=== PATIENT | male | born 1985 | race Caucasian/White ===

== ENCOUNTER 2018-06-27 15:56 | Emergency (ER) | payer BC ==
[2018-06-27 16:00] VITALS: BP 131/95
--- NOTE | 2018-06-27 16:03 | ER Report ---
History and Physical Time Seen By MD: 16:03 Hx. of Stated Complaint: PATIENT CAUGHT HIS RIGHT INDEX FINGER IN A TABLE SAW. BLEEDING CONTROLLED HPI/ROS CHIEF COMPLAINT: Laceration to right index finger HISTORY OF PRESENT ILLNESS: 32-year-old male patient persists to emergency room with complaint of laceration to the right index finger. Patient states that he was using a table saw when he got his finger caught any. Patient states that he did apply pressure right away. He states that he does have some tenderness. He is unsure of his last tetanus shot. Patient denies any numbness tingling to his fingers. REVIEW OF SYSTEMS: Respiratory: No cough, no dyspnea. Cardiovascular: No chest pain, no palpitations. Gastrointestinal: No vomiting, no abdominal pain. Musculoskeletal: As noted above Allergies: Coded Allergies: No Known Drug Allergies (Unverified , 06/27/18) Home Meds Active Scripts Hydrocodone Bit/Acetaminophen (HYDROCODON-ACETAMINOPHEN 5-325) 1 Each Tablet, 1 EACH PO Q4-6H PRN for PAIN, #12 TAB Prov:WENDIONIEL [facility] 06/27/18 Cephalexin 500 Mg Tab (KEFLEX 500 MG TAB) 500 Mg Tablet, 500 MG PO Q6H, #28 TAB Prov:ONIEL ADAME [facility] 06/27/18 Reported Medications Lisinopril (LISINOPRIL) 20 Mg Tablet, 20 MG PO QDAY, TAB 06/27/18 Past Medical/Surgical History Patient has a past medical history of hypertension, asthma, alcohol use. Patient denies any surgical history. Reviewed Nurses Notes: Yes Constitutional Vital Sign - Last 24 Hours 06/27/18 16:00 Temp 97.6 Pulse 98 Resp 20 B/P (MAP) 131/95 Pulse Ox 93 O2 Delivery Room Air Physical Exam General Appearance: The patient is alert, has no immediate need for airway protection and no current signs of toxicity. Respiratory: Chest is non tender, lungs are clear to auscultation. Cardiac: regular rate and rhythm Gastrointestinal: Abdomen is soft and non tender, no masses, bowel sounds normal. Musculoskeletal: Neck: Neck is supple and non tender. Extremities have full range of motion and are non tender. Patient has a 4 cm laceration to the distal aspect of the right index finger, does go through the nail. Skin: No rashes or lesions. DIFFERENTIAL DIAGNOSIS: After history and physical exam differential diagnosis was considered for laceration, open Atul fracture Medical Decision Making EKG/Imaging Imaging FINGER RIGHT 2ND DIGIT INDICATION: Table saw accident. COMPARISON: None available FINDINGS: 3 views of the right index finger. There is a fracture of the proximal to mid distal phalanx. No appreciable displacement. Mild distraction. Soft tissue defect is present without radiopaque foreign body. No other bony or joint abnormality. IMPRESSION: Fracture distal phalanx of the right index finger. Soft tissues show a defect without radiopaque foreign body. Report Dictated By: Theodore Chong at 06/27/2018 5:04 PM Report E-Signed By: Theodore Chong at 06/27/2018 5:06 PM ED Course/Re-evaluation ED Course Patient was admitted to an exam room, history of physical were obtained. Differential diagnoses were considered. On examination lungs are clear, heart is regular, abdomen soft nontender. Patient does have significant laceration, measuring approximate 4 cm in length to the tip of the right index finger. The finger was anesthetized, cleaned and repaired described below. X-rays done of the right index finger which showed a fracture of the distal phalanx. I discussed the findings with patient. With the distal phalanx fracture as well as the laceration this is an open fracture and so we will go ahead and treat him with antibiotics, both here in the emergency room as well as orally. Patient will also receive a lumbar spine pain medication. He is to follow-up with [facility] for further evaluation and management of the fracture. They will remove the sutures and appropriate. Discusses patient who verbalized understanding and agreement with plan. Procedure: Laceration repair. Verbal consent was obtained from the patient. The 4 cm laceration on the tip of the right index finger was anesthetized in the usual fashion. The wound was scrubbed, draped and explored to its base with a gloved finger. There were no deep structures involved. No tendon injury was identified. The wound was repaired with 10 simple interrupted sutures using 5-0 Prolene material. The wound repair was simple. The procedure was performed by myself. Decision to Disposition Date: Jun 27, 2018 Decision to Disposition Time: 17:18 Depart Departure Latest Vital Signs Vital Signs Date Time Temp Pulse Resp B/P (MAP) Pulse Ox O2 Delivery O2 Flow Rate FiO2 06/27/18 16:00 97.6 98 20 131/95 93 Room Air Impression: Primary Impression: Open fracture of distal phalanx Condition: Improved Disposition: HOME OR SELF-CARE New Scripts Hydrocodone Bit/Acetaminophen (HYDROCODON-ACETAMINOPHEN 5-325) 1 Each Tablet 1 EACH PO Q4-6H PRN for PAIN, #12 TAB Prov: ONIEL ADAME 06/27/18 Cephalexin 500 Mg Tab (KEFLEX 500 MG TAB) 500 Mg Tablet 500 MG PO Q6H, #28 TAB Prov: ONIEL ADAME 06/27/18 Patient Instructions: Finger Fracture (ED), Finger Laceration (ED) Additional Instructions: Keep wound dry for 48 hours. Follow up with [facility], call on Friday to make an appointment. Monitor for signs of infection; redness, swelling, heat, discharge, increasing pain or red streaking. Take Tylenol or Ibuprofen as needed for pain. Return to the ER with any concerns. You may change dressing as needed. Limit activity by pain. Return to the ER with uncontrollable pain or numbness to the finger. You may take Ibuprofen as needed for pain in addition to the pain medication. Don't take any additional Tylenol while on the pain medication. ONIEL ADAME Jun 27, 2018 16:03
[2018-06-27] MEDS ORDERED: LISI20TA29 PO (16:05)
[2018-06-27] MEDS ORDERED: DIPHTH/TETANUS/ACEL. PERTUSSIS IM ONLY ONE (16:15)
[2018-06-27] MEDS ORDERED: ceFAZolin(*) 1 GM VIAL 1 GM in NS(*) 0.9% 100 ML ADDVANT BAG 100 ML IV ONE (16:40)
--- NOTE | 2018-06-27 17:10 | RADIOLOGY IMAGING REPORT ---
FACILITY: [facility] PATIENT NAME: Car Medina : 1985 MR: [id number] V: [id number] EXAM DATE: ORDERING PHYSICIAN: ONIEL ADAME TECHNOLOGIST: Location: [facility] - [place] Patient: Car Medina : 1985 Visit/Account:[id number] Date of Sevice: 06/27/2018 FINGER RIGHT 2ND DIGIT INDICATION: Table saw accident. COMPARISON: None available FINDINGS: 3 views of the right index finger. There is a fracture of the proximal to mid distal phal anx. No appreciable displacement. Mild distraction. Soft tissue defect is present without radiopaque foreign body. No other bony or joint abnormality. IMPRESSION: Fracture distal phalanx of the right index finger. Soft tissues show a defect without rad iopaque foreign body. Report Dictated By: Theodore Chong at 06/27/2018 5:04 PM Report E-Signed By: Theodore Chong at 06/27/2018 5:06 PM WSN:[id number]
[2018-06-27] MEDS ORDERED: HYDR-385 PO (17:12)
[2018-06-27] MEDS ORDERED: CEPH500T7 PO (17:12)
== END 2018-06-27 17:43 | disposition home or self-care (01) ==
LOC: ER 16:00
DX: S62.630B Displaced fracture of distal phalanx of right index finger, initial encounter for open fracture (principal); S61.210A Laceration without foreign body of right index finger without damage to nail, initial encounter; W29.8XXA Contact with other powered hand tools and household machinery, initial encounter
CPT/HCPCS: 12002; 73140; 90471; 90715; 99283; J0690; J7050